=== PATIENT | male | born 1950 | race Caucasian/White ===

== ENCOUNTER 2017-07-10 15:08 | Emergency (ER) | payer SELFPAY ==
[~2017-07-10] VITALS: Ht 195.6 cm; Wt 102.4 kg
[2017-07-10 15:11] VITALS: BP 174/107
== END 2017-07-10 17:18 | disposition left against medical advice (07) ==
LOC: EME 15:08
DX: R50.9 Fever, unspecified (principal); Z53.21 Procedure and treatment not carried out due to patient leaving prior to being seen by health care provider